=== PATIENT | male | born 1960 | race Hispanic/Latino ===

== ENCOUNTER 2020-07-06 13:48 | Inpatient (IN) | payer OTHER ==
[2020-07-04 14:22] LABS: BASOPHILS # (AUTO) 0.1 (0.0-0.1); BASOPHILS % 0.8 % (0.0-1.0); EOSINOPHILS # (AUTO) 0.2 (0.0-0.4); EOSINOPHILS % 1.7 % (0.0-6.0); HEMATOCRIT 41.7 % (38.2-49.6); HEMOGLOBIN 14.2 g/dL (14.0-18.0); LYMPHOCYTES # (AUTO) 2.1 (1.0-3.2); LYMPHOCYTES % 23.6 % (18.0-39.1); MEAN CORPUSCULAR HEMOGLOBIN 28.1 pg (28-32); MEAN CORPUSCULAR HGB CONC 34.1 g/dL (31-35); MEAN CORPUSCULAR VOLUME 82.4 fL (81-99); MONOCYTES # (AUTO) 0.6 (0.2-0.8); MONOCYTES % 6.1 % (4.4-11.3); NEUTROPHILS # (AUTO) 6.1 (2.1-6.9); NEUTROPHILS % 67.5 % (38.7-80.0); PLATELET COUNT 200 x10e3/uL (140-360); RED BLOOD COUNT 5.06 x10e6/uL (4.3-5.7)
[2020-07-04 14:40] LABS: ANION GAP 13.1 mmol/L (8-16); CALCIUM 9.4 mg/dL (8.4-10.2); CREATININE, SERUM 1.31 mg/dL (0.72-1.25); POTASSIUM 4.1 mmol/L (3.5-5.1)
[~2020-07-06] VITALS: Ht 165.1 cm; Wt 79.4 kg
[~2020-07-06 13:48] MED LIST: AMLODIPINE BESY10 MG PO; DEXAMETHASONE SOD PHOS INJ 4 MG/ML VIAL ONE; FENTANYL CITRATE/PF 100MCG/2 ML INJ ONE; FINASTERIDE5 MG PO; LIDOCAINE HCL 2% LOCAL INJ 5 ML SDV VIAL INJ ONE; MIDAZOLAM HCL 2 MG/2 ML VIAL ONE; MULTI-VITAMIN1 EACH PO; ONDANSETRON HCL INJ 2MG/ML 2ML 2 MG/ML VIAL ONE; PROPOFOL IV EMULSION 10 MG/ML 20 ML VIAL ONE; SEVOFLURANE INHAL SOLN 250 ML PEN BTL ONE
[2020-07-06] MEDS ORDERED: CEFTRIAXONE SOD 1 GM/NS 50 ML 50 ML IV ONE (14:13)
[2020-07-06] MEDS ORDERED: SODIUM CHLORIDE 0.9% 1000ML 1,000 ML ONE (14:14)
[2020-07-06] MEDS: GENTAMICIN 80MG/NS 100 ML 200 ML IV ONE (14:55)
--- OUTSIDE RECORDS SUMMARY | 2020-07-06 14:59 | XMS REPORT | Clinical Summary ---
Author Author [facility] Organization [facility] Address Unknown Phone Unavailable Care Team Providers Care Automatic Spinning Lathe Setter Name Role Phone Asked, No Pcp PCP Unavailable Allergies No Known Active Allergies Medications End Date Status Medication Sig Dispensed Refills Start Date Active tamsulosin (FLOMAX) 0.4 Take 0.4 mg 0 mg capsule by mouth daily. Active SAW PALMETTO ORAL Take by 0 mouth. 06/01/2021 Active finasteride (PROSCAR) 5 Take 1 tablet 90 tablet 3 mg tablet (5 mg total) 0 by mouth daily. 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 Never 06/01/2020 How many drinks containing alcohol do you have on No t asked a typical day when you are drinking? How often do you have six or more drinks on one Not asked occasion? Sex Assigned at Date Recorded Not on file Last Filed Vital Signs Reading Time Taken Comments Vital Sign - - Blood Pressure - - Pulse - - Temperature - - Respiratory Rate - - Oxygen Saturation - - Inhaled Oxygen Concentration 78.5 kg (173 lb) 06/01/2020 9:28 AM CDT Weight 165.1 cm (5' 5") 06/01/2020 9:28 AM CDT Height 28.79 06/01/2020 9:28 AM CDT Body Mass Index Plan of Treatment Health Maintenance Due Date Last Done Comments COLONOSCOPY SCREENING 2010 SHINGLES VACCINES (#1) 2010 INFLUENZA VACCINE 03/31/2020 Results Not on fileafter 07/06/2019 Advance Directives For more information, please contact: [phone] Patient Marinator Explanation Type Date Recorded Advance Directives, Living Will and Medical Power of Art Preparator
--- OUTSIDE RECORDS SUMMARY | 2020-07-06 15:00 | XMS REPORT | Continuity of Care Document ---
Author Author [facility] Organization [facility] Address [address] [place] [address] Phone Unavailable Care Team Providers Care E Business Specialist Name Role Phone Asked, Pcp No PCP Unavailable Lalit CORRAL, Constance Attphys Payers Payer Name Policy Type Policy Number Effective Date Expiration Date S ource Problems This patient has no known problems. Allergies, Adverse Reactions, Alerts Allergy Name Allergy Type Status Severity Reaction(s) Onset Date Inacti ve Date Treating Clinician Comments Source No Known Allergies DA Active U 2011-10-19 00:00:00 [facility] Social History Social Habit Start Date Stop Date Quantity Comments Source History SDOH Alcohol Std Drinks Yunior Lewis History SDOH Alcohol Binge [employer] Sex Assigned At [facility] Tobacco use and exposure 2020-06-01 00:00:00 2020-06-01 00:00:00 Mateo mcdonough used Yunior Lewis Alcohol intake 2020-06-01 00:00:00 2020-06-01 00:00:00 Lifetime non-drinker (finding) [employer] History SDOH Alcohol Frequency 2020-06-01 00:00:00 2020-06-01 00:00:0 0 1 Yunior Danielsist Smoking Status Start Date Stop Date Source Never smoker Yunior li Medications Ordered Medication Name Filled Medication Name Start Date Stop Da te Current Medication? Ordering Clinician Indication Dosage Frequency Signature (SIG) Comments Components Source tamsulosin (FLOMAX) 0.4 mg capsule 2020-06-01 09:29:02 Yes .4mg QD Take 0.4 mg by mouth daily. Yunior Lewis SAW PALMETTO ORAL 2020-06-01 09:29:02 Yes Ta ke by mouth. Yunior Lewis finasteride (PROSCAR) 5 mg tablet 2020-06-01 00:00:00 2020 23:59:00 Yes 5mg QD Take 1 tablet (5 mg total) by mouth raúl skaggs Yunior Lewis Vital Signs Vital Name Observation Time Observation Value Comments Source Body height 2020-06-01 09:28:00 165.1 cm Yunior Lewis Body weight 2020-06-01 09:28:00 78.472 kg Yunior Lewis BMI 2020-06-01 09:28:00 28.79 kg/m2 Yunior Lewis Procedures This patient has no known procedures. Plan of Care Planned Activity Planned Date Details Comments Source Future Scheduled Test 2020-03-31 00:00:00 INFLUENZA VACCINE [code = INFLUENZA VACCINE] Yunior Lewis Future Scheduled Test 2010 00:00:00 COLONOSCOPY SCREEN ING [code = COLONOSCOPY SCREENING] Yunior Lewis Future Scheduled Test 2010 00:00:00 SHINGLES VACCINES (#1) [code = SHINGLES VACCINES (#1)] Yunior Lewis Encounters Start Date/Time End Date/Time Encounter Type Admission Type Att[facility] Facility Care Department Encounter ID Source 2020-06-01 00:00:00 2020-06-01 00:00:00 Outpatient [facility] [id number] Yunior Lewis Results Test Description Test Time Test Comments Results Result Comments Source UA RFLX MICR CULT IF INDICATED 2020-05-23 03:11:00 Test Item UA COLOR (test code = COLU) YELLOW YELLOW UA APPEARANCE (test code = APPU) CLEAR CLEAR UA GLUCOSE DIPSTICK (test code = DGLUU) NORMAL MG/DL NORMAL UA BILIRUBIN DIPSTICK (test code = BILU) NEGATIVE MG/DL NEGATIVE UA KETONE DIPSTICK (test code = KETU) NEGATIVE MG/DL NEGATIVE UA SPECIFIC GRAVITY (test code = SGU) 1.010 1.003-1.030 N UA BLOOD DIPSTICK (test code = KATERYNA) 25 Franck/mm3 NEGATIVE A UA PH DIPSTICK (test code = HAYLEY) 8.0 5.0-9.0 N UA PROTEIN DIPSTICK (test code = PROU) 15 MG/DL NEGATIVE UA UROBILINIOGEN DIPSTICK (test code = URO) NORMAL MG/DL NORMAL UA NITRITE DIPSTICK (test code = ARABELLA) NEGATIVE NEGATIVE UA LEUKOCYTE ESTERASE DIPSTICK (test code = LEUU) NEGATIVE /mm3 NEG ATIVE UA CULTURE NEEDED? (test code = UACULT) NO, WBC<10 Criteria Culture Chk SOURCE OF URINE: VOIDEDIndication for culture: Dysuria/FrequencyUA [id number] 03:11:00* Test Item Value Reference Range Interpretation Comments UA RBC (test code = RBCU) 10-20 RBC/HPF 0-3 A UA WBC (test code = XWBCU) 5-9 WBC/HPF 0-5 A UA EPITHELIAL CELLS (test code = EPIU) RARE EPI/HPF FEW UA BACTERIA (test code = XBACU) RARE NONE SOURCE OF URINE: VOIDEDIndication for culture: Dysuria/FrequencyUA RFLX MICR CULT IF [id number] 02:44:00* Test Item Value Reference Range Interpretation Comments UA COLOR (test code = COLU) YELLOW YELLOW UA APPEARANCE (test code = APPU) CLEAR CLEAR UA GLUCOSE DIPSTICK (test code = DGLUU) NORMAL MG/DL NORMAL UA BILIRUBIN DIPSTICK (test code = BILU) NEGATIVE MG/DL NEGATIVE UA KETONE DIPSTICK (test code = KETU) NEGATIVE MG/DL NEGATIVE UA SPECIFIC GRAVITY (test code = SGU) 1.010 1.003-1.030 N UA BLOOD DIPSTICK (test code = KATERYNA) 25 Franck/mm3 NEGATIVE A UA PH DIPSTICK (test code = HAYLEY) 8.0 5.0-9.0 N UA PROTEIN DIPSTICK (test code = PROU) 15 MG/DL NEGATIVE UA UROBILINIOGEN DIPSTICK (test code = URO) NORMAL MG/DL NORMAL UA NITRITE DIPSTICK (test code = ARABELLA) NEGATIVE NEGATIVE UA LEUKOCYTE ESTERASE DIPSTICK (test code = LEUU) NEGATIVE /mm3 NEG ATIVE UA CULTURE NEEDED? (test code = UACULT) Criteria Culture Chk SOURCE OF URINE: VOIDEDIndication for culture: Dysuria/FrequencyUA [id number] 02:44:00* Test Item Value Reference Range Interpretation Comments UA RBC (test code = RBCU) RBC/HPF 0-3 UA WBC (test code = XWBCU) WBC/HPF 0-5 UA EPITHELIAL CELLS (test code = EPIU) EPI/HPF FEW UA BACTERIA (test code = XBACU) NONE SOURCE OF URINE: VOIDEDIndication for culture: Dysuria/FrequencyUA RFLX MICR CULT IF [id number] 02:44:00* Test Item Value Reference Range Interpretation Comments UA COLOR (test code = COLU) YELLOW YELLOW UA APPEARANCE (test code = APPU) CLEAR CLEAR UA GLUCOSE DIPSTICK (test code = DGLUU) NORMAL MG/DL NORMAL UA BILIRUBIN DIPSTICK (test code = BILU) NEGATIVE MG/DL NEGATIVE UA KETONE DIPSTICK (test code = KETU) NEGATIVE MG/DL NEGATIVE UA SPECIFIC GRAVITY (test code = SGU) 1.010 1.003-1.030 N UA BLOOD DIPSTICK (test code = KATERYNA) 25 Franck/mm3 NEGATIVE A UA PH DIPSTICK (test code = HAYLEY) 8.0 5.0-9.0 N UA PROTEIN DIPSTICK (test code = PROU) 15 MG/DL NEGATIVE UA UROBILINIOGEN DIPSTICK (test code = URO) NORMAL MG/DL NORMAL UA NITRITE DIPSTICK (test code = ARABELLA) NEGATIVE NEGATIVE UA LEUKOCYTE ESTERASE DIPSTICK (test code = LEUU) NEGATIVE /mm3 NEG ATIVE UA CULTURE NEEDED? (test code = UACULT) Criteria Culture Chk SOURCE OF URINE: VOIDEDIndication for culture: Dysuria/FrequencyUA [id number] 02:44:00* Test Item Value Reference Range Interpretation Comments UA RBC (test code = RBCU) RBC/HPF 0-3 UA WBC (test code = XWBCU) WBC/HPF 0-5 UA EPITHELIAL CELLS (test code = EPIU) EPI/HPF FEW UA BACTERIA (test code = XBACU) NONE SOURCE OF URINE: VOIDEDIndication for culture: Dysuria/FrequencyBASIC METABOLIC [id number] 04:58:00* Test Item Value Reference Range Interpretation Comments SODIUM (test code = NA) 139 MMOL/L 137-145 N POTASSIUM (test code = K) 4.0 MMOL/L 3.5-5.1 N CHLORIDE (test code = CL) 102 MMOL/L 98-107 N CARBON DIOXIDE (test code = CO2) 25 MMOL/L 22-30 N GLUCOSE (test code = GLU) 158 MG/DL 74-106 H BLOOD UREA NITROGEN (test code = BUN) 16 MG/DL 9-20 N GLOMERULAR FILTRATION RATE (test code = GFR) > 60 Reporting units: ml/min/1.73 m2 (Modified MDRD Formula)Reference Range: > or = 60 ml/min/1.73 m2 CREATININE (test code = CREAT) 1.20 MG/DL 0.66-1.25 N CALCIUM (test code = CA) 9.4 MG/DL 8.4-10.2 N BASIC METABOLIC [id number] 04:57:00* Test Item Value Reference Range Interpretation Comments SODIUM (test code = NA) 139 MMOL/L 137-145 N POTASSIUM (test code = K) 4.0 MMOL/L 3.5-5.1 N CHLORIDE (test code = CL) 102 MMOL/L 98-107 N CARBON DIOXIDE (test code = CO2) 25 MMOL/L 22-30 N GLUCOSE (test code = GLU) MG/DL 74-106 BLOOD UREA NITROGEN (test code = BUN) 16 MG/DL 9-20 N GLOMERULAR FILTRATION RATE (test code = GFR) > 60 Reporting units: ml/min/1.73 m2 (Modified MDRD Formula)Reference Range: > or = 60 ml/min/1.73 m2 CREATININE (test code = CREAT) 1.20 MG/DL 0.66-1.25 N CALCIUM (test code = CA) MG/DL 8.7-9.7 URINALYSIS [id number] 04:55:00* Test Item Value Reference Range Interpretation Comments UA COLOR (test code = COLU) YELLOW YELLOW UA APPEARANCE (test code = APPU) CLEAR CLEAR UA GLUCOSE DIPSTICK (test code = DGLUU) NORMAL MG/DL NORMAL UA BILIRUBIN DIPSTICK (test code = BILU) NEGATIVE MG/DL NEGATIVE UA KETONE DIPSTICK (test code = KETU) NEGATIVE MG/DL NEGATIVE UA SPECIFIC GRAVITY (test code = SGU) 1.010 1.003-1.030 N UA BLOOD DIPSTICK (test code = KATERYNA) 50 Franck/mm3 NEGATIVE A UA PH DIPSTICK (test code = HAYLEY) 7.0 5.0-9.0 N UA PROTEIN DIPSTICK (test code = PROU) NEGATIVE MG/DL NEGATIVE UA UROBILINIOGEN DIPSTICK (test code = URO) NORMAL MG/DL NORMAL UA NITRITE DIPSTICK (test code = ARABELLA) NEGATIVE NEGATIVE UA LEUKOCYTE ESTERASE DIPSTICK (test code = LEUU) NEGATIVE /mm3 NEG ATIVE UA CULTURE NEEDED? (test code = UACULT) NO, WBC<10 Criteria Culture Chk SOURCE OF URINE: CLEAN CATCHUA [id number] 04:55:00* Test Item Value Reference Range Interpretation Comments UA RBC (test code = RBCU) 20-30 RBC/HPF 0-3 A P reviously reported result: 3-5 RBC/HPFEdited by: NUBIA on 04/17/20:[id number]/ 0451: RBC previously reported as: 3-5 H RBC/HPFNOTIFIED ZELDA Sharp (CHARGE NURSE) UA WBC (test code = XWBCU) 0-3 WBC/HPF 0-5 UA EPITHELIAL CELLS (test code = EPIU) RARE EPI/HPF FEW UA BACTERIA (test code = XBACU) RARE NONE SOURCE OF URINE: CLEAN CATCHBASIC METABOLIC [id number] 04:54:00* Test Item Value Reference Range Interpretation Comments SODIUM (test code = NA) 139 MMOL/L 137-145 N POTASSIUM (test code = K) 4.0 MMOL/L 3.5-5.1 N CHLORIDE (test code = CL) 102 MMOL/L 98-107 N CARBON DIOXIDE (test code = CO2) MMOL/L 22-30 GLUCOSE (test code = GLU) MG/DL 74-106 BLOOD UREA NITROGEN (test code = BUN) MG/DL 9-20 GLOMERULAR FILTRATION RATE (test code = GFR) CREATININE (test code = CREAT) MG/DL 0.66-1.25 CALCIUM (test code = CA) MG/DL 8.7-9.7 URINALYSIS [id number] 04:49:00* Test Item Value Reference Range Interpretation Comments UA COLOR (test code = COLU) YELLOW YELLOW UA APPEARANCE (test code = APPU) CLEAR CLEAR UA GLUCOSE DIPSTICK (test code = DGLUU) NORMAL MG/DL NORMAL UA BILIRUBIN DIPSTICK (test code = BILU) NEGATIVE MG/DL NEGATIVE UA KETONE DIPSTICK (test code = KETU) NEGATIVE MG/DL NEGATIVE UA SPECIFIC GRAVITY (test code = SGU) 1.010 1.003-1.030 N UA BLOOD DIPSTICK (test code = KATERYNA) 50 Franck/mm3 NEGATIVE A UA PH DIPSTICK (test code = HAYLEY) 7.0 5.0-9.0 N UA PROTEIN DIPSTICK (test code = PROU) NEGATIVE MG/DL NEGATIVE UA UROBILINIOGEN DIPSTICK (test code = URO) NORMAL MG/DL NORMAL UA NITRITE DIPSTICK (test code = ARABELLA) NEGATIVE NEGATIVE UA LEUKOCYTE ESTERASE DIPSTICK (test code = LEUU) NEGATIVE /mm3 NEG ATIVE UA CULTURE NEEDED? (test code = UACULT) NO, WBC<10 Criteria Culture Chk SOURCE OF URINE: CLEAN CATCHUA [id number] 04:49:00* Test Item Value Reference Range Interpretation Comments UA RBC (test code = RBCU) 3-5 RBC/HPF 0-3 A UA WBC (test code = XWBCU) 0-3 WBC/HPF 0-5 UA EPITHELIAL CELLS (test code = EPIU) RARE EPI/HPF FEW UA BACTERIA (test code = XBACU) RARE NONE SOURCE OF URINE: CLEAN CATCHCBC W/AUTO [id number] 04:44:00* Test Item Value Reference Range Interpretation Comments WHITE BLOOD CELL (test code = WBC) 13.3 K/MM3 3.8-9.8 H RED BLOOD CELL (test code = RBC) 4.99 M/MM3 3.95-5.67 N HEMOGLOBIN (test code = HGB) 14.5 G/DL 12.4-16.7 N HEMATOCRIT (test code = HCT) 42.9 % 35.9-49.5 N MEAN CELL VOLUME (test code = MCV) 86 fL 81.7-96.1 N MEAN CELL HGB (test code = MCH) 29.1 pg 27.6-33.2 N MEAN CELL HGB CONCETRATION (test code = MCHC) 33.8 % 32.9-35. 5 N RED CELL DISTRIBUTION WIDTH (test code = RDW) 11.9 % 12.1-15. 2 L PLATELET COUNT (test code = PLT) 183 K/MM3 129-368 N MEAN PLATELET VOLUME (test code = MPV) 10.0 fl 7.4-10.4 N NEUTROPHIL % (test code = NT%) 81.5 % 43-75 H IMMATURE GRANULOCYTE % (test code = IG%) 0.5 % 0.0-2.0 N LYMPHOCYTE % (test code = LY%) 11.8 % 14-44 L MONOCYTE % (test code = MO%) 5.5 % 4-13 N EOSINOPHIL % (test code = EO%) 0.3 % 0-6 N BASOPHIL % (test code = BA%) 0.4 % 0-2 N NUCLEATED RBC % (test code = NRBC%) 0.0 % 0-1.0 N NEUTROPHIL # (test code = NT#) 10.79 K/mm3 2.0-7.6 H IMMATURE GRANULOCYTE # (test code = IG#) 0.07 x10 3/uL 0-0.03 H LYMPHOCYTE # (test code = LY#) 1.57 K/mm3 1.0-3.8 N MONOCYTE # (test code = MO#) 0.73 K/mm3 0.1-0.8 N EOSINOPHIL # (test code = EO#) 0.04 K/mm3 0.0-0.2 N BASOPHIL # (test code = BA#) 0.05 K/mm3 0.0-0.2 N NUCLEATED RBC # (test code = NRBC#) 0.00 K/mm3 0.0-0.1 N URINALYSIS [id number] 04:43:00* Test Item Value Reference Range Interpretation Comments UA COLOR (test code = COLU) YELLOW YELLOW UA APPEARANCE (test code = APPU) CLEAR CLEAR UA GLUCOSE DIPSTICK (test code = DGLUU) NORMAL MG/DL NORMAL UA BILIRUBIN DIPSTICK (test code = BILU) NEGATIVE MG/DL NEGATIVE UA KETONE DIPSTICK (test code = KETU) NEGATIVE MG/DL NEGATIVE UA SPECIFIC GRAVITY (test code = SGU) 1.010 1.003-1.030 N UA BLOOD DIPSTICK (test code = KATERYNA) 50 Franck/mm3 NEGATIVE A UA PH DIPSTICK (test code = HAYLEY) 7.0 5.0-9.0 N UA PROTEIN DIPSTICK (test code = PROU) NEGATIVE MG/DL NEGATIVE UA UROBILINIOGEN DIPSTICK (test code = URO) NORMAL MG/DL NORMAL UA NITRITE DIPSTICK (test code = ARABELLA) NEGATIVE NEGATIVE UA LEUKOCYTE ESTERASE DIPSTICK (test code = LEUU) NEGATIVE /mm3 NEG ATIVE UA CULTURE NEEDED? (test code = UACULT) Criteria Culture Chk SOURCE OF URINE: CLEAN CATCHUA [id number] 04:43:00* Test Item Value Reference Range Interpretation Comments UA RBC (test code = RBCU) RBC/HPF 0-3 UA WBC (test code = XWBCU) WBC/HPF 0-5 UA EPITHELIAL CELLS (test code = EPIU) EPI/HPF FEW UA BACTERIA (test code = XBACU) NONE SOURCE OF URINE: CLEAN CATCHURINALYSIS [id number] 04:43:00* Test Item Value Reference Range Interpretation Comments UA COLOR (test code = COLU) YELLOW YELLOW UA APPEARANCE (test code = APPU) CLEAR CLEAR UA GLUCOSE DIPSTICK (test code = DGLUU) NORMAL MG/DL NORMAL UA BILIRUBIN DIPSTICK (test code = BILU) NEGATIVE MG/DL NEGATIVE UA KETONE DIPSTICK (test code = KETU) NEGATIVE MG/DL NEGATIVE UA SPECIFIC GRAVITY (test code = SGU) 1.010 1.003-1.030 N UA BLOOD DIPSTICK (test code = KATERYNA) 50 Franck/mm3 NEGATIVE A UA PH DIPSTICK (test code = HAYLEY) 7.0 5.0-9.0 N UA PROTEIN DIPSTICK (test code = PROU) NEGATIVE MG/DL NEGATIVE UA UROBILINIOGEN DIPSTICK (test code = URO) NORMAL MG/DL NORMAL UA NITRITE DIPSTICK (test code = ARABELLA) NEGATIVE NEGATIVE UA LEUKOCYTE ESTERASE DIPSTICK (test code = LEUU) NEGATIVE /mm3 NEG ATIVE UA CULTURE NEEDED? (test code = UACULT) Criteria Culture Chk SOURCE OF URINE: CLEAN CATCHUA [id number] 04:43:00* Test Item Value Reference Range Interpretation Comments UA RBC (test code = RBCU) RBC/HPF 0-3 UA WBC (test code = XWBCU) WBC/HPF 0-5 UA EPITHELIAL CELLS (test code = EPIU) EPI/HPF FEW UA BACTERIA (test code = XBACU) NONE SOURCE OF URINE: CLEAN CATCH
[2020-07-06] MEDS ORDERED: IOPAMIDOL 300MG/ML 50ML INFUS..BTL IV ONE (17:13)
[2020-07-06] MEDS ORDERED: B&O 60MG R/S 60 MG SUPP PR ONE (17:14)
[2020-07-06] MEDS ORDERED: ACETAMINOPHEN/CODEINE 300MG - 30MG TAB PO PRN (17:15)
[2020-07-06] MEDS ORDERED: PHENAZOPYRIDINE HCL 100 MG TAB PO PRN (17:15)
[2020-07-06] MEDS ORDERED: DIPHENHYDRAMINE HCL 25 MG CAP PO PRN (17:15)
[2020-07-06] MEDS ORDERED: ONDANSETRON HCL INJ 2MG/ML 2ML 2 MG/ML VIAL IV PRN (17:15)
[2020-07-06] MEDS ORDERED: B&O 60MG R/S 60 MG SUPP PR PRN (17:15)
[2020-07-06 18:46] LABS: BASOPHILS # (AUTO) 0.1 (0.0-0.1); BASOPHILS % 0.7 % (0.0-1.0); EOSINOPHILS # (AUTO) 0.2 (0.0-0.4); EOSINOPHILS % 1.9 % (0.0-6.0); HEMATOCRIT 38.3 % (38.2-49.6); LYMPHOCYTES # (AUTO) 2.2 (1.0-3.2); LYMPHOCYTES % 23.6 % (18.0-39.1); MEAN CORPUSCULAR HGB CONC 33.9 g/dL (31-35); MEAN CORPUSCULAR VOLUME 82.4 fL (81-99); MONOCYTES # (AUTO) 0.4 (0.2-0.8); MONOCYTES % 4.7 % (4.4-11.3); NEUTROPHILS # (AUTO) 6.5 (2.1-6.9); NEUTROPHILS % 68.8 % (38.7-80.0); PLATELET COUNT 167 x10e3/uL (140-360); RED BLOOD COUNT 4.65 x10e6/uL (4.3-5.7)
[2020-07-06 19:04] LABS: ANION GAP 12.3 mmol/L (8-16); BLOOD UREA NITROGEN 11 mg/dL (7-26); BUN/CREATININE RATIO 10 (6-25); CARBON DIOXIDE 24 mmol/L (22-29); CHLORIDE 108 mmol/L (98-107); CREATININE, SERUM 1.12 mg/dL (0.72-1.25); EST GLOMERULAR FILTRATION RATE > 60 ML/MIN (60-); GLUCOSE 124 mg/dL (74-118); POTASSIUM 3.3 mmol/L (3.5-5.1); SODIUM 141 mmol/L (136-145)
[2020-07-06] MEDS ORDERED: FENTANYL CITRATE/PF 100MCG/2 ML INJ ONE (19:04)
[2020-07-06] MEDS ORDERED: HYDRALAZINE HCL 20 MG/ML VIAL ONE (19:26)
[2020-07-06] MEDS ORDERED: MORPHINE SULFATE INJ 4 MG/ML INJ 1ML ONE (19:40)
--- NOTE | 2020-07-06 20:05 | NUR ---
RECEIVED REPORT FROM WENDI, PACU NURSE. PATIENT ARRIVED FROM PACU WITH CBI AND VILLEGAS DRAINING BRIGHT RED BLOOD. PATIENT GOWN HAS BRIGHT RED BLOOD ON IT WHERE THE VILLEGAS WAS INSERTED. PATIENT HAS DISCOMFORT AT VILLEGAS INSERTION AREA. PATIENT IS A&OX3 AND AMBULATES. CALL LIGHT WITHIN REACH.
[2020-07-06 20:20] VITALS: BP 109/77
--- NOTE | 2020-07-06 20:30 | NUR ---
VILLEGAS CARE WAS PERFORMED AND PATIENT WAS WIPED CLEANED FROM BLOOD COMING FROM HIS PENILE AREA.
[2020-07-06] MEDS ORDERED: INFLUENZA VIRUS VAC SPLIT INJ 0.5 ML SYR IM SCH (22:31)
[2020-07-06] MEDS: D5.45%NS/KCL 20MEQ 1,000 ML IV SCH (23:57)
[2020-07-07] VITALS (10 sets, daily range): BP systolic 114–141; BP diastolic 70–89
[2020-07-07] MEDS: D5.45%NS/KCL 20MEQ 1,000 ML IV SCH ×2 (01:15→07:19)
[2020-07-07 06:40] LABS: BASOPHILS % 0.1 % (0.0-1.0); HEMATOCRIT 38.5 % (38.2-49.6); HEMOGLOBIN 13.4 g/dL (14.0-18.0); LYMPHOCYTES # (AUTO) 0.7 (1.0-3.2); LYMPHOCYTES % 6.2 % (18.0-39.1); MEAN CORPUSCULAR HEMOGLOBIN 29.1 pg (28-32); MEAN CORPUSCULAR HGB CONC 34.8 g/dL (31-35); MEAN CORPUSCULAR VOLUME 83.7 fL (81-99); MONOCYTES # (AUTO) 0.3 (0.2-0.8); MONOCYTES % 2.8 % (4.4-11.3); NEUTROPHILS # (AUTO) 10.8 (2.1-6.9); NEUTROPHILS % 90.6 % (38.7-80.0); PLATELET COUNT 203 x10e3/uL (140-360)
--- NOTE | 2020-07-07 07:00 | NUR ---
BEDSIDE SHIFT REPORT RECEIVED PT IN STABLE CONDITION DENIES PAIN AT THIS TIME UPDATED ON POC VOICED UNDERSTANDING, VILLEGAS TO BSD WITH CBI INFUSING PINK TINGED URINE NOTED, IVF INFUSING TO R HAND 20G NO SS OF INFILTRATION NOTED, NO OTHER CO VOCIED CALL LIGHT IN REACH WILL CONTINUE TO MONITOR
[2020-07-07 07:04] LABS: BLOOD UREA NITROGEN 14 mg/dL (7-26); BUN/CREATININE RATIO 12 (6-25); CALCIUM 8.3 mg/dL (8.4-10.2); CARBON DIOXIDE 24 mmol/L (22-29); CHLORIDE 106 mmol/L (98-107); CREATININE, SERUM 1.19 mg/dL (0.72-1.25); EST GLOMERULAR FILTRATION RATE > 60 ML/MIN (60-); GLUCOSE 172 mg/dL (74-118); SODIUM 138 mmol/L (136-145)
--- NOTE | 2020-07-07 07:20 | NUR ---
GAVE BEDSIDE SHIFT REPORT TO ONCOMING NURSE. CALL LIGHT WITHIN REACH. PATIENT IN BED. URINE IS PINK AND CBI/VILLEGAS DRAINING WELL. HOURLY ROUNDING PERFORMED.
[2020-07-07] MEDS ORDERED: HYDRALAZINE HCL 25 MG TAB PO PRN (08:00)
[2020-07-07] MEDS: DOCUSATE SODIUM 100 MG CAP PO SCH ×2 (08:40→16:18)
[2020-07-07] MEDS: SODIUM CHLORIDE 0.9% 1000ML 1,000 ML IV SCH ×2 (08:40→18:00)
[2020-07-07] MEDS: MULTIVITAMINS/MINERALS TAB PO SCH (08:41)
[2020-07-07] MEDS: FINASTERIDE 5 MG TAB PO SCH (08:41)
[2020-07-07] MEDS: AMLODIPINE BESYLATE 10 MG TAB PO SCH (08:41)
[2020-07-07] MEDS: CEFTRIAXONE SOD 1 GM/NS 50 ML 50 ML IV SCH (14:23)
--- NOTE | 2020-07-07 15:08 | History and Physical ---
The patient is status post TURP. He need continued urinary bladder irrigation. The patient has gross hematuria. Apparent blood clot, the patient need to be admitted for continuous irrigation of his urinary bladder. He does have some penile pain along the Carey catheter. HISTORY: The patient is a 59-year-old male admitted on July 06, 2020, status post TURP procedure done by Dr. Alonzo Juarez. The patient had gross hematuria, require urinary bladder irrigation. Currently, he is having some penile area pain, but no sign of infection at the penile meatus. The patient is stable. There is some blood-tinged discharge. The patient is getting Rocephin antibiotic. He is getting half-normal saline with potassium. He is stable, admitted for continued bladder irrigation due to the extension of the TURP procedures, status post cystoscopy. PAST MEDICAL HISTORY: 1. Hypertension. 2. Obstructive benign prostatic hyperplasia. 3. Recurrent urinary tract infection with gross hematuria. SOCIAL HISTORY: The patient does not smoke or use alcohol. No recreational drug. ALLERGIES: NO KNOWN ALLERGIES. HOME MEDICATION: Norvasc, finasteride, multivitamin. REVIEW OF SYSTEMS: Penile meatus where the Carey catheter entry with pain. Gross hematuria. Abdominal pelvic discomfort. No chest pain. No shortness of breath. No lower extremity pain or swelling. No headache. No visual changes or any neurological deficit. No GI problem. PHYSICAL EXAMINATION: VITAL SIGNS: Temperature is 98, blood pressure 122/79, pulse rate 71, respirations . GENERAL: The patient is not in acute distress, awake, comfortable with pain medication. HEENT: Normocephalic and atraumatic. Anicteric. NECK: Supple. No JVD. PULMONARY: Diminished breath sounds but without any coarse rales or wheezing. CARDIOVASCULAR: S1, S2. Regular rate and rhythm. No gallop or rub. ABDOMEN: Soft. Generalized pressure and discomfort in the suprapubic area with Carey catheter in place, but otherwise no distention. No rebound tenderness. Positive bowel sounds. EXTREMITIES: No gross cyanosis or edema. NEUROLOGIC: No focal deficit. LABORATORY DATA: WBC is 11.9, hemoglobin 13.4, hematocrit 38.5, and platelets 203. Chemistry sodium 141, potassium 3.3, chloride 108, bicarb 24, BUN is 11, creatinine 1.1, glucose 124. ASSESSMENT AND PLAN: 1. Status post TURP. The patient is stable on continuous urinary bladder irrigation. He is on IV fluids. There is gross hematuria. There is some discomfort along with the penile meatus. Otherwise, the patient is stable. Continue with urinary bladder irrigation. We will check the lab work. Continue with pain medication. SCD and incentive spirometry. Postoperative care. 2. Chronic baseline medical problems including hypertension. The patient is stable. Continue to monitor his blood pressure. Add on hydralazine as needed. Resume Norvasc. We will adjust medication if needed. I will change the half-normal saline with potassium to normal saline for now. We will continue to monitor his electrolytes. MD LYDIA Pires/SHAE /[phone]
--- NOTE | 2020-07-07 18:55 | NUR ---
RECEIVED BEDSIDE SHIFT REPORT FROM PREVIOUS NURSE. CALL LIGHT WITHIN REACH. PATIENT IN BED. AT BEDSIDE. PATIENT VILLEGAS DRAINING WELL AND PINK COLOR.
--- NOTE | 2020-07-07 19:10 | NUR ---
bedside shift report given to oncoming nurse pt left laying in bed in stable condition, denies pain at this time, call light in reach.
--- NOTE | 2020-07-07 20:23 | Operative Report ---
DATE OF PROCEDURE: 07/06/2020 SURGEON: Alonzo Juarez MD PREOPERATIVE DIAGNOSES: 1. Obstructive benign prostatic hyperplasia. 2. Gross hematuria. POSTOPERATIVE DIAGNOSES: 1. Obstructive benign prostatic hyperplasia. 2. Gross hematuria. OPERATIONS PERFORMED: 1. Cystourethroscopy with bilateral ureteral catheterization and retrograde ureteropyelography (separate procedure performed for the hematuria). 2. Interpretation of retrograde ureteropyelography, no radiologist present. 3. Supervision of fluoroscopy, no radiologist present. 4. Cystourethroscopy with complicated and extensive transurethral resection of a very large prostate (separate procedure performed was a first stage, what will likely need to be a multistage process in managing the patient's huge BPH. ANESTHESIA: General. COMPLICATIONS: None. CLINICAL SUMMARY: Tony Harris is a very complicated 59-year-old man. He has had a previous right radical nephrectomy. The patient has chronic renal insufficiency. He has had chronic urinary retention, has been managed with a Carey catheter. The patient's definitive management of his obstructive BPH has been delayed due to healthcare system as well as financial considerations. The patient reports that he has had a previously elevated PSA and has had negative prostate biopsies. He is brought for the above procedures. He is aware of the risks of bleeding, infection, injury to adjacent structures, incontinence, impotence, retrograde ejaculation, need for additional procedures and elected to proceed. OPERATIVE PROCEDURE IN DETAIL: Informed consent verified. Tony Harris was properly identified, taken to the operating room, placed on the cystoscopy table in supine position. Anesthesia was uneventfully begun. The patient was then carefully gently repositioned in the dorsal lithotomy position with all pressure points well padded. His genitalia were prepared and draped in usual sterile fashion. The cystoscope sheath with the visual obturator in place was atraumatically inserted into the patient's urethra. It was guided down the unremarkable urethra through normal sphincteric region through the prostate bed, which was significant for huge trilobar prostatic hypertrophy with a very long prostatic urethra, kissing lateral lobes and a prominent intravesical median lobe. We entered the patient's bladder. A panendoscopy revealed trabeculations, normally positioned configured ureteral orifices were identified. An 8-Kyr[place] catheter was used to cannulate each ureter and retrograde ureteropyelograms were performed. Interpretation of retrograde ureteropyelography contrast was instilled in a retrograde fashion bilaterally. There was a half right ureter present, but it was unremarkable except for severe J-hooking. There was dramatic J-hooking on the left hand side, but there was no hydronephrosis. Calyces were sharp and delicate. No tumors. No obstructive drainage was observed fluoroscopically. The resectoscope was atraumatically placed utilizing the obturator in place and we then utilized the plasma loop to perform TURP. First, we eliminated the median lobe, which was a very extensive dissection. Care was taken to avoid injuring the ureteral orifices, which were left not injured. We then proceeded on both lateral lobes from the bladder neck tube, but never passed the verumontanum and down the surgical capsule. Chips were evacuated. We verified this cystoscopically. There was residual prostatic tissue present. However, the resection was rather extensive in time despite working as quickly as possible and we do not want to risk congestive heart failure in this patient with already existing renal insufficiency. Therefore, when we felt that there was a wide open prostatic channel then hopefully, we will allow the patient to void without being catheter dependent, we decided it is best to end the procedure at this point and should the patient require it return the patient for a second stage TURP at a later date. The resectoscope was withdrawn. A continuous irrigation Carey catheter was placed. It was irrigated to and fro to ensure it worked properly. A belladonna and opium suppository were placed revealing a large greater than 50 g prostate, smooth and non-fluctuant without any nodules. The patient was then uneventfully reversed from anesthesia and taken to recovery room in stable condition with no complications to the procedure. He tolerated the procedure well. Estimated blood loss was minimal. We will plan on routine postoperative care and of course ongoing urological followup. Alonzo MD PORTIA Juarez/SHAE /[id number]
[2020-07-08] VITALS (8 sets, daily range): BP systolic 135–163; BP diastolic 79–92
[2020-07-08] MEDS: SODIUM CHLORIDE 0.9% 1000ML 1,000 ML IV SCH ×2 (03:43→15:25)
[2020-07-08 06:15] LABS: BASOPHILS % 0.3 % (0.0-1.0); EOSINOPHILS % 0.3 % (0.0-6.0); HEMOGLOBIN 11.6 g/dL (14.0-18.0); LYMPHOCYTES # (AUTO) 2.1 (1.0-3.2); LYMPHOCYTES % 18.3 % (18.0-39.1); MEAN CORPUSCULAR HEMOGLOBIN 28.3 pg (28-32); MEAN CORPUSCULAR HGB CONC 34.1 g/dL (31-35); MEAN CORPUSCULAR VOLUME 82.9 fL (81-99); MONOCYTES # (AUTO) 0.8 (0.2-0.8); MONOCYTES % 7.2 % (4.4-11.3); NEUTROPHILS # (AUTO) 8.4 (2.1-6.9); NEUTROPHILS % 73.4 % (38.7-80.0); PLATELET COUNT 175 x10e3/uL (140-360); RED CELL DISTRIBUTION WIDTH 12.2 % (11.7-14.4)
[2020-07-08 06:33] LABS: ANION GAP 10.5 mmol/L (8-16); BLOOD UREA NITROGEN 13 mg/dL (7-26); BUN/CREATININE RATIO 13 (6-25); CALCIUM 7.8 mg/dL (8.4-10.2); CARBON DIOXIDE 26 mmol/L (22-29); CHLORIDE 109 mmol/L (98-107); CREATININE, SERUM 0.97 mg/dL (0.72-1.25); EST GLOMERULAR FILTRATION RATE > 60 ML/MIN (60-); GLUCOSE 109 mg/dL (74-118); POTASSIUM 3.5 mmol/L (3.5-5.1); SODIUM 142 mmol/L (136-145)
--- NOTE | 2020-07-08 07:00 | NUR ---
BEDSIDE SHIFT REPORT RECEIVED PT IN STABLE CONDITION DENIES PAIN AT THIS TIME, VILLEGAS TO BSD WITH CBI INFUSING CL YELLOW URINE NOTED, NO OTHER CO VOCIED CALL LIGHT IN REACH WILL CONTINUE TO MONITOR
--- NOTE | 2020-07-08 07:24 | NUR ---
GAVE BEDSIDE SHIFT REPORT TO ONCOMING NURSE. CALL LIGHT WITHIN REACH. PATIENT IN BED. HOURLY ROUNDING PERFORMED.
[2020-07-08] MEDS: MULTIVITAMINS/MINERALS TAB PO SCH (08:53)
[2020-07-08] MEDS: DOCUSATE SODIUM 100 MG CAP PO SCH ×2 (08:53→16:17)
[2020-07-08] MEDS: AMLODIPINE BESYLATE 10 MG TAB PO SCH (08:54)
[2020-07-08] MEDS: FINASTERIDE 5 MG TAB PO SCH (08:54)
[2020-07-08] MEDS ORDERED: BENZONATATE 100 MG CAP PO PRN (09:45)
[2020-07-08] MEDS ORDERED: ACETAMINOPHEN 325 MG TAB PO PRN (09:45)
[2020-07-08] MEDS ORDERED: POTASSIUM CHLORIDE 10MEQ EA PO ONE (10:30)
[2020-07-08] MEDS: CEFTRIAXONE SOD 1 GM/NS 50 ML 50 ML IV SCH (14:30)
--- NOTE | 2020-07-08 19:00 | NUR ---
RECEIVED BEDSIDE SHIFT REPORT FROM PREVIOUS NURSE. CALL LIGHT WITHIN REACH. PATIENT IN BED. AT BEDSIDE.
[2020-07-09 05:04] VITALS: BP 149/67
[2020-07-09 05:33] LABS: BASOPHILS # (AUTO) 0.1 (0.0-0.1); BASOPHILS % 0.7 % (0.0-1.0); EOSINOPHILS # (AUTO) 0.3 (0.0-0.4); EOSINOPHILS % 2.4 % (0.0-6.0); HEMATOCRIT 41.1 % (38.2-49.6); HEMOGLOBIN 14.1 g/dL (14.0-18.0); LYMPHOCYTES # (AUTO) 3.2 (1.0-3.2); LYMPHOCYTES % 25.5 % (18.0-39.1); MEAN CORPUSCULAR HEMOGLOBIN 28.4 pg (28-32); MEAN CORPUSCULAR HGB CONC 34.3 g/dL (31-35); MEAN CORPUSCULAR VOLUME 82.9 fL (81-99); MONOCYTES % 7.8 % (4.4-11.3); PLATELET COUNT 210 x10e3/uL (140-360); RED BLOOD COUNT 4.96 x10e6/uL (4.3-5.7); RED CELL DISTRIBUTION WIDTH 12.3 % (11.7-14.4)
[2020-07-09 06:06] LABS: ANION GAP 13.4 mmol/L (8-16); BLOOD UREA NITROGEN 13 mg/dL (7-26); BUN/CREATININE RATIO 12 (6-25); CALCIUM 8.9 mg/dL (8.4-10.2); CARBON DIOXIDE 28 mmol/L (22-29); CHLORIDE 102 mmol/L (98-107); CREATININE, SERUM 1.06 mg/dL (0.72-1.25); EST GLOMERULAR FILTRATION RATE > 60 ML/MIN (60-); GLUCOSE 113 mg/dL (74-118); POTASSIUM 3.4 mmol/L (3.5-5.1); SODIUM 140 mmol/L (136-145)
[2020-07-09] MEDS: SODIUM CHLORIDE 0.9% 1000ML 1,000 ML IV SCH (06:13)
--- NOTE | 2020-07-09 07:25 | NUR ---
GAVE BEDSIDE SHIFT REPORT TO ONCOMING NURSE. CALL LIGHT WITHIN REACH. PATIENT IN BED. HOURLY ROUNDING PERFORMED.
[2020-07-09 07:37] VITALS: BP 149/67
--- NOTE | 2020-07-09 08:00 | NUR ---
patient ambulating in hallway, awake, alert, oriented, in stable condition. no complaints at this time. will continue to monitor.
[2020-07-09 08:39] VITALS: BP 144/85
--- NOTE | 2020-07-09 08:43 | NUR ---
VILLEGAS DISCONTINUED; TIP INTACT. PT TOLERATED WELL.
[2020-07-09] MEDS: FINASTERIDE 5 MG TAB PO SCH (08:49)
[2020-07-09] MEDS: DOCUSATE SODIUM 100 MG CAP PO SCH (08:49)
[2020-07-09] MEDS: MULTIVITAMINS/MINERALS TAB PO SCH (08:49)
[2020-07-09] MEDS: AMLODIPINE BESYLATE 10 MG TAB PO SCH (08:49)
[2020-07-09] MEDS ORDERED: POTASSIUM CHLORIDE 10MEQ EA PO ONE (09:15)
--- NOTE | 2020-07-09 12:25 | NUR ---
PT HAS HAD 5 CLEAR VOIDS; PAGING DR. MUNIZ.
[2020-07-09 12:29] VITALS: BP 157/95
--- NOTE | 2020-07-09 14:00 | NUR ---
PT'S POST-VOID RESIDUAL [address] MUNIZ STAND POINT TO BE DISCHARGED.
[2020-07-09] MEDS ORDERED: TYLENOL # 31 EA PO (14:02)
[2020-07-09] MEDS ORDERED: LEVOFLOXACIN250 MG PO (14:03)
--- NOTE | 2020-07-09 15:23 | NUR ---
RECEIVED DC ORDER FROM DR. KENNEDY, PATIENT IS IN STABLE CONDITION. IV LINE TO BILATERAL HANDS DISCONTINUED WITH TIP INTACT, PRESSURE APPLIED TO SITE, NO BLEEDING NOTED. DISCHARGE TEACHING PROVIDED TO PATIENT, HE VERBALIZED UNDERSTANDING. TRANSITION OF CARE FOLDER WITH DC PAPERWORK AND PRESCRIPTION ON HAND. ALL PERSONAL ITEMS ON HAND. PATIENT REFUSED WHEELCHAIR, ACCOMPANIED TO PRIVATE AUTO BY STAFF.
--- NOTE | 2020-07-10 09:39 | Discharge Summary ---
RESIST COATER DEVELOPER: Alonzo Juarez M.D. FINAL DIAGNOSES: 1. Enlarged prostate associated with recurrent prostatitis and urinary bladder outlet obstruction. 2. Status post transurethral resection of prostate. 3. Postop leukocytosis and gross hematuria, require continuous irrigation. HISTORY OF PRESENT ILLNESS: The patient is a 59-year-old male with a very enlarged prostate associated with urinary retention, urinary bladder outlet obstruction, and recurrent bladder infection. The patient is status post TURP procedure on July 06, 2020, The patient had gross hematuria, and because of that the patient admitted to the hospital for continuous urinary bladder irrigation with saline. The patient continued to improve. Hematuria is resolving. The patient is stable. He was subsequently able to urinate after a period of the irrigation and discontinued Carey catheter. Gross hematuria resolved. The patient was doing much better. Home medications resumed. Blood pressure controlled. Electrolyte deficit corrected. The patient was stable. He has tolerated all his diet. He is ambulatory. The patient was cleared by Dr. Alonzo Juarez, his surgeon, who did the procedures, for going home. The patient is stable, discharged home. Prescription was given by Dr. Alonzo Juarez, and the patient discharged home. Resume his home medication. The patient was stable on discharge. MD LYDIA Pires/SHAE /[id number]
== END 2020-07-09 15:23 | disposition home or self-care (01) | DRG 713 ==
LOC: OR 13:48 → PACU V 14:57 → MED/SURG 20:05
PROVIDERS: ADMIT Internal Medicine; ATTEND Internal Medicine
PROC: BT141ZZ Fluoroscopy of Kidneys, Ureters and Bladder using Low Osmolar Contrast (ICD-10-PCS; principal; 2020-07-06 16:00)
PROC: 0V508ZZ Destruction of Prostate, Via Natural or Artificial Opening Endoscopic (ICD-10-PCS; 2020-07-06 16:00)
DX: N40.1 Benign prostatic hyperplasia with lower urinary tract symptoms (principal); C64.1 Malignant neoplasm of right kidney, except renal pelvis; N39.0 Urinary tract infection, site not specified; N13.8 Other obstructive and reflux uropathy; E66.9 Obesity, unspecified; R35.1 Nocturia; R97.20 Elevated prostate specific antigen [PSA]; K42.9 Umbilical hernia without obstruction or gangrene; R31.0 Gross hematuria; N18.9 Chronic kidney disease, unspecified; Z68.29 Body mass index [BMI] 29.0-29.9, adult; I12.9 Hypertensive chronic kidney disease with stage 1 through stage 4 chronic kidney disease, or unspecified chronic kidney disease; N41.9 Inflammatory disease of prostate, unspecified; R33.8 Other retention of urine; Z20.828 Contact with and (suspected) exposure to other viral communicable diseases
CPT/HCPCS: 36415; 74420; 80048; 83735; 85025; 88305; 93005; 96361; C1758; C1769; J0360; J0696; J1100; J1580; J2001; J2250; J2270; J2405; J3010; J7030

== ENCOUNTER 2020-10-02 05:20 | Inpatient (IN) | payer OTHER ==
[2020-09-28 10:19] LABS: BASOPHILS # (AUTO) 0.1 (0.0-0.1); BASOPHILS % 0.7 % (0.0-1.0); EOSINOPHILS # (AUTO) 0.1 (0.0-0.4); EOSINOPHILS % 1.4 % (0.0-6.0); HEMATOCRIT 44.8 % (38.2-49.6); HEMOGLOBIN 14.8 g/dL (14.0-18.0); LYMPHOCYTES # (AUTO) 2.5 (1.0-3.2); LYMPHOCYTES % 29.1 % (18.0-39.1); MEAN CORPUSCULAR HEMOGLOBIN 26.9 pg (28-32); MEAN CORPUSCULAR VOLUME 81.5 fL (81-99); MONOCYTES # (AUTO) 0.7 (0.2-0.8); MONOCYTES % 7.7 % (4.4-11.3); NEUTROPHILS # (AUTO) 5.2 (2.1-6.9); NEUTROPHILS % 60.6 % (38.7-80.0); PLATELET COUNT 191 x10e3/uL (140-360); RED CELL DISTRIBUTION WIDTH 12.3 % (11.7-14.4)
[2020-09-28 10:46] LABS: ANION GAP 12.4 mmol/L (8-16); CALCIUM 9.2 mg/dL (8.4-10.2); CREATININE, SERUM 1.32 mg/dL (0.72-1.25); POTASSIUM 4.4 mmol/L (3.5-5.1)
[~2020-10-02] VITALS: Ht 165.1 cm; Wt 79.4 kg
[~2020-10-02 05:20] MED LIST changes: -DEXAMETHASONE SOD PHOS INJ 4 MG/ML VIAL ONE; -FENTANYL CITRATE/PF 100MCG/2 ML INJ ONE; +FLOMAX0.4 MG PO; +LEVOFLOXACIN250 MG PO; -LIDOCAINE HCL 2% LOCAL INJ 5 ML SDV VIAL INJ ONE; -MIDAZOLAM HCL 2 MG/2 ML VIAL ONE; -ONDANSETRON HCL INJ 2MG/ML 2ML 2 MG/ML VIAL ONE; -PROPOFOL IV EMULSION 10 MG/ML 20 ML VIAL ONE; -SEVOFLURANE INHAL SOLN 250 ML PEN BTL ONE; +TYLENOL # 31 EA PO
[2020-10-02] MEDS ORDERED: SODIUM CHLORIDE 0.45% 1,000 ML ONE (05:48)
[2020-10-02] MEDS ORDERED: CEFTRIAXONE SOD 1 GM/NS 50 ML 50 ML IV ONE (05:48)
[2020-10-02] MEDS ORDERED: GENTAMICIN 80MG/NS 100 ML 200 ML IV ONE (05:49)
[2020-10-02] MEDS ORDERED: B&O 60MG R/S 60 MG SUPP PR ONE (06:52)
[2020-10-02] MEDS ORDERED: IOPAMIDOL 300MG/ML 50ML INFUS..BTL IV ONE (06:53)
[2020-10-02] MEDS ORDERED: INDIGOTINDISULFONATE SODIUM 8 MG/ML AMP IJ ONE (08:22)
[2020-10-02] MEDS ORDERED: DIPHENHYDRAMINE HCL 25 MG CAP PO PRN (09:15)
[2020-10-02] MEDS ORDERED: PHENAZOPYRIDINE HCL 100 MG TAB PO PRN (09:15)
[2020-10-02] MEDS ORDERED: B&O 60MG R/S 60 MG SUPP PR PRN (09:15)
[2020-10-02] MEDS ORDERED: HYDROMORPHONE 1MG/1ML INJ ONE (09:53)
[2020-10-02 12:02] LABS: BASOPHILS % 0.3 % (0.0-1.0); EOSINOPHILS % 0.1 % (0.0-6.0); HEMATOCRIT 42.5 % (38.2-49.6); HEMOGLOBIN 13.8 g/dL (14.0-18.0); LYMPHOCYTES # (AUTO) 1.6 (1.0-3.2); MEAN CORPUSCULAR HEMOGLOBIN 27.1 pg (28-32); MEAN CORPUSCULAR HGB CONC 32.5 g/dL (31-35); MEAN CORPUSCULAR VOLUME 83.5 fL (81-99); MONOCYTES # (AUTO) 0.2 (0.2-0.8); MONOCYTES % 1.4 % (4.4-11.3); NEUTROPHILS # (AUTO) 10.4 (2.1-6.9); NEUTROPHILS % 84.9 % (38.7-80.0); PLATELET COUNT 196 x10e3/uL (140-360); RED BLOOD COUNT 5.09 x10e6/uL (4.3-5.7); RED CELL DISTRIBUTION WIDTH 12.1 % (11.7-14.4)
[2020-10-02 12:18] LABS: ANION GAP 12.2 mmol/L (8-16); CALCIUM 7.9 mg/dL (8.4-10.2); CREATININE, SERUM 1.27 mg/dL (0.72-1.25); POTASSIUM 4.2 mmol/L (3.5-5.1)
[2020-10-02] MEDS ORDERED: MIDAZOLAM HCL 2 MG/2 ML VIAL ONE (12:49)
[2020-10-02] MEDS ORDERED: FENTANYL CITRATE/PF 100MCG/2 ML INJ ONE (12:49)
[2020-10-02] MEDS ORDERED: ONDANSETRON HCL INJ 2MG/ML 2ML 2 MG/ML VIAL ONE (12:51)
[2020-10-02] MEDS ORDERED: ROCURONIUM BROMIDE 10 MG/ML 5ML VIAL IV ONE (12:51)
[2020-10-02] MEDS ORDERED: EPHEDRINE SULFATE INJ 50 MG/ML VIAL ONE (12:51)
[2020-10-02] MEDS ORDERED: DEXAMETHASONE SOD PHOS INJ 4 MG/ML VIAL ONE (12:51)
[2020-10-02] MEDS ORDERED: NEOSTIGMINE 1 MG/ML 10ML VIAL ONE (12:51)
[2020-10-02] MEDS ORDERED: FUROSEMIDE INJ 10 MG/ML 4 ML VIAL ONE (12:51)
[2020-10-02] MEDS ORDERED: GLYCOPYRROLATE INJ 0.2 MG/ML VIAL ONE (12:51)
[2020-10-02] MEDS ORDERED: SEVOFLURANE INHAL SOLN 250 ML PEN BTL ONE (12:51)
[2020-10-02] MEDS ORDERED: LIDOCAINE HCL 2% LOCAL INJ 5 ML SDV VIAL INJ ONE (12:51)
[2020-10-02] MEDS ORDERED: PROPOFOL IV EMULSION 10 MG/ML 20 ML VIAL ONE (12:51)
[2020-10-02 13:00] VITALS: BP 115/68
[2020-10-02] MEDS: D5.45%NS/KCL 20MEQ 1,000 ML IV SCH ×2 (13:31→16:42)
[2020-10-02] MEDS ORDERED: ACETAMINOPHEN 1000 MG/100 ML IV PRN (14:00)
[2020-10-02 15:33] VITALS: BP 115/68
[2020-10-02] MEDS: DOCUSATE SODIUM 100 MG CAP PO SCH (16:42)
[2020-10-02 17:00] VITALS: BP_SYST 119; BP_SYST 126; BP_DIAS 63; BP_DIAS 71
[2020-10-02 20:05] VITALS: BP 140/71
[2020-10-02 21:00] VITALS: BP 140/71
[2020-10-02 23:46] VITALS: BP 125/73
[2020-10-03] VITALS (7 sets, daily range): BP systolic 120–135; BP diastolic 70–78
[2020-10-03] MEDS: D5.45%NS/KCL 20MEQ 1,000 ML IV SCH (01:10)
[2020-10-03 05:29] LABS: BASOPHILS % 0.2 % (0.0-1.0); HEMATOCRIT 37.3 % (38.2-49.6); HEMOGLOBIN 12.4 g/dL (14.0-18.0); LYMPHOCYTES # (AUTO) 1.3 (1.0-3.2); LYMPHOCYTES % 8.6 % (18.0-39.1); MEAN CORPUSCULAR HEMOGLOBIN 27.2 pg (28-32); MEAN CORPUSCULAR HGB CONC 33.2 g/dL (31-35); MEAN CORPUSCULAR VOLUME 81.8 fL (81-99); MONOCYTES # (AUTO) 0.9 (0.2-0.8); MONOCYTES % 5.9 % (4.4-11.3); NEUTROPHILS # (AUTO) 12.9 (2.1-6.9); NEUTROPHILS % 84.9 % (38.7-80.0); PLATELET COUNT 178 x10e3/uL (140-360); RED BLOOD COUNT 4.56 x10e6/uL (4.3-5.7); RED CELL DISTRIBUTION WIDTH 12.3 % (11.7-14.4)
[2020-10-03 05:55] LABS: CALCIUM 7.8 mg/dL (8.4-10.2); CREATININE, SERUM 1.38 mg/dL (0.72-1.25)
[2020-10-03] MEDS: DOCUSATE SODIUM 100 MG CAP PO SCH ×2 (08:29→16:51)
[2020-10-03] MEDS: CEFTRIAXONE SOD 1 GM/NS 50 ML 50 ML IV SCH (08:29)
[2020-10-03] MEDS: MAGNESIUM OXIDE 400 MG TAB PO SCH ×2 (09:38→16:51)
[2020-10-03] MEDS: AMLODIPINE BESYLATE 10 MG TAB PO SCH (09:38)
[2020-10-03] MEDS: SODIUM BICARBONATE 8.4% 50 ML in SODIUM CHLORIDE 0.45% 1,000 ML IV SCH (11:07)
[2020-10-03] MEDS: TAMSULOSIN HCL 0.4 MG CAP PO SCH (16:51)
[2020-10-04] VITALS (8 sets, daily range): BP systolic 140–155; BP diastolic 73–92
[2020-10-04] MEDS: SODIUM BICARBONATE 8.4% 50 ML in SODIUM CHLORIDE 0.45% 1,000 ML IV SCH ×3 (00:14→20:52)
[2020-10-04 05:07] LABS: BASOPHILS # (AUTO) 0.1 (0.0-0.1); BASOPHILS % 0.4 % (0.0-1.0); EOSINOPHILS # (AUTO) 0.3 (0.0-0.4); EOSINOPHILS % 2.4 % (0.0-6.0); HEMATOCRIT 38.3 % (38.2-49.6); HEMOGLOBIN 12.9 g/dL (14.0-18.0); LYMPHOCYTES # (AUTO) 2.5 (1.0-3.2); LYMPHOCYTES % 21.8 % (18.0-39.1); MEAN CORPUSCULAR HGB CONC 33.7 g/dL (31-35); MEAN CORPUSCULAR VOLUME 83.1 fL (81-99); MONOCYTES # (AUTO) 0.8 (0.2-0.8); MONOCYTES % 7.2 % (4.4-11.3); NEUTROPHILS # (AUTO) 7.8 (2.1-6.9); NEUTROPHILS % 67.9 % (38.7-80.0); PLATELET COUNT 148 x10e3/uL (140-360); RED BLOOD COUNT 4.61 x10e6/uL (4.3-5.7); RED CELL DISTRIBUTION WIDTH 12.4 % (11.7-14.4)
[2020-10-04 05:27] LABS: ANION GAP 13.3 mmol/L (8-16); BLOOD UREA NITROGEN 16 mg/dL (7-26); BUN/CREATININE RATIO 16 (6-25); CALCIUM 8.3 mg/dL (8.4-10.2); CARBON DIOXIDE 29 mmol/L (22-29); CHLORIDE 105 mmol/L (98-107); CREATININE, SERUM 1.01 mg/dL (0.72-1.25); EST GLOMERULAR FILTRATION RATE > 60 ML/MIN (60-); GLUCOSE 106 mg/dL (74-118); POTASSIUM 4.3 mmol/L (3.5-5.1); SODIUM 143 mmol/L (136-145)
[2020-10-04] MEDS: AMLODIPINE BESYLATE 10 MG TAB PO SCH (08:23)
[2020-10-04] MEDS: MAGNESIUM OXIDE 400 MG TAB PO SCH ×2 (08:23→17:42)
[2020-10-04] MEDS: DOCUSATE SODIUM 100 MG CAP PO SCH ×2 (08:23→17:42)
[2020-10-04] MEDS: CEFTRIAXONE SOD 1 GM/NS 50 ML 50 ML IV SCH (08:23)
[2020-10-04] MEDS: ACETAMINOPHEN/CODEINE 300MG - 30MG TAB PO PRN (14:54)
[2020-10-04] MEDS: TAMSULOSIN HCL 0.4 MG CAP PO SCH (17:42)
[2020-10-05] VITALS (8 sets, daily range): BP systolic 127–159; BP diastolic 86–94
[2020-10-05 05:39] LABS: BASOPHILS # (AUTO) 0.1 (0.0-0.1); BASOPHILS % 0.8 % (0.0-1.0); EOSINOPHILS # (AUTO) 0.4 (0.0-0.4); EOSINOPHILS % 4.5 % (0.0-6.0); HEMATOCRIT 40.8 % (38.2-49.6); HEMOGLOBIN 13.5 g/dL (14.0-18.0); LYMPHOCYTES # (AUTO) 2.7 (1.0-3.2); LYMPHOCYTES % 31.3 % (18.0-39.1); MEAN CORPUSCULAR HEMOGLOBIN 27.7 pg (28-32); MEAN CORPUSCULAR HGB CONC 33.1 g/dL (31-35); MEAN CORPUSCULAR VOLUME 83.8 fL (81-99); MONOCYTES # (AUTO) 0.7 (0.2-0.8); NEUTROPHILS # (AUTO) 4.7 (2.1-6.9); NEUTROPHILS % 55.1 % (38.7-80.0); PLATELET COUNT 157 x10e3/uL (140-360); RED BLOOD COUNT 4.87 x10e6/uL (4.3-5.7); RED CELL DISTRIBUTION WIDTH 12.2 % (11.7-14.4)
[2020-10-05 05:58] LABS: ANION GAP 15.1 mmol/L (8-16); BLOOD UREA NITROGEN 15 mg/dL (7-26); BUN/CREATININE RATIO 14 (6-25); CALCIUM 8.6 mg/dL (8.4-10.2); CARBON DIOXIDE 30 mmol/L (22-29); CHLORIDE 100 mmol/L (98-107); CREATININE, SERUM 1.08 mg/dL (0.72-1.25); EST GLOMERULAR FILTRATION RATE > 60 ML/MIN (60-); GLUCOSE 99 mg/dL (74-118); POTASSIUM 4.1 mmol/L (3.5-5.1); SODIUM 141 mmol/L (136-145)
[2020-10-05] MEDS: SODIUM BICARBONATE 8.4% 50 ML in SODIUM CHLORIDE 0.45% 1,000 ML IV SCH (06:19)
[2020-10-05] MEDS: ACETAMINOPHEN/CODEINE 300MG - 30MG TAB PO PRN (08:42)
[2020-10-05] MEDS: DOCUSATE SODIUM 100 MG CAP PO SCH (08:45)
[2020-10-05] MEDS: AMLODIPINE BESYLATE 10 MG TAB PO SCH (08:45)
[2020-10-05] MEDS: CEFTRIAXONE SOD 1 GM/NS 50 ML 50 ML IV SCH (08:45)
[2020-10-05] MEDS: MAGNESIUM OXIDE 400 MG TAB PO SCH (08:45)
== END 2020-10-05 15:30 | disposition home or self-care (01) | DRG 713 ==
LOC: OR 05:20 → PACU V 09:06 → MED/SURG 12:45
PROVIDERS: ADMIT Urology; ATTEND Urology
PROC: 0V508ZZ Destruction of Prostate, Via Natural or Artificial Opening Endoscopic (ICD-10-PCS; principal; 2020-10-02 07:00)
PROC: BT141ZZ Fluoroscopy of Kidneys, Ureters and Bladder using Low Osmolar Contrast (ICD-10-PCS; 2020-10-02 07:00)
DX: N40.1 Benign prostatic hyperplasia with lower urinary tract symptoms (principal); C64.1 Malignant neoplasm of right kidney, except renal pelvis; N39.0 Urinary tract infection, site not specified; I12.9 Hypertensive chronic kidney disease with stage 1 through stage 4 chronic kidney disease, or unspecified chronic kidney disease; N18.2 Chronic kidney disease, stage 2 (mild); E66.9 Obesity, unspecified; R35.1 Nocturia; N45.3 Epididymo-orchitis; R31.0 Gross hematuria; Z68.29 Body mass index [BMI] 29.0-29.9, adult; Z20.822 Contact with and (suspected) exposure to COVID-19
CPT/HCPCS: 36415; 74420; 80048; 83735; 85025; C1758; J0696; J1100; J1170; J1580; J1940; J2001; J2250; J2405; J2710; J3010; U0002

== ENCOUNTER → 2021-03-08 | Outpatient (CLI) | payer OTHER | LOC: US 11:29 | PROVIDERS: ATTEND Urology | DX: C64.1 Malignant neoplasm of right kidney, except renal pelvis (principal) | CPT/HCPCS: 71046; 76770 ==